=== PATIENT | male | born 1950 ===

== ENCOUNTER → 2018-06-05 | Outpatient (REF) | payer BC | LOC: ZZSENDIN 12:54 | PROVIDERS: ATTEND Family Medicine | DX: M70.21 Olecranon bursitis, right elbow (principal) | CPT/HCPCS: 82945; 84157; 87071; 87073; 87205; 89051 ==

== ENCOUNTER → 2018-07-01 | Outpatient (CLI) | payer BC ==
--- NOTE | 2018-07-01 11:59 | RADIOLOGY IMAGING REPORT ---
FACILITY: [facility] PATIENT NAME: Brandt Sue : 1950 MR: [id number] V: [id number] EXAM DATE: ORDERING PHYSICIAN: TIFFANIE ABERNATHY TECHNOLOGIST: Location: [facility] - [place] Patient: Brandt Sue : 1950 Visit/Account:[id number] Date of Sevice: 07/01/2018 TESTICULAR ultrasound. EXAMINATION: Scrotal ultrasound with duplex Doppler evaluation HISTORY: Scrotal swelling COMPARISON: None. FINDINGS: Testes: Right testicle measures 5 x 3.3 x 3.6 cm.. There are no mass lesions with testicle demonstrating nor mal vascularity Left testicle measures 4.3 x 3.0 x 3.4 cm. . There are no mass lesions testicle demonstrating normal vascular Epididymides: Right epididymal head measures 1.4 cm. Left epididymal head measures 0.8 cm. Blood flow is appropriate in each epididymis by color Doppler ultrasound. Hydrocele: Large bilateral hydroceles. Thin internal septations seen within the right hydrocele. Varicocele: none IMPRESSION: 1. No acute testicular pathology. Large bilateral hydroceles. Report Dictated By: Kory Mendez MD at 07/01/2018 11:51 AM Report E-Signed By: Kory Mendez MD at 07/01/2018 11:55 AM WSN:[id number]
== END ==
LOC: US 10:48
PROVIDERS: ATTEND Family Medicine
DX: N43.2 Other hydrocele (principal)
CPT/HCPCS: 76870